=== PATIENT | female | born 1990 | race Caucasian/White ===

== ENCOUNTER 2024-07-08 19:20 | Inpatient (IN) | payer OTHER ==
[2024-07-08 20:29] VITALS: BMI 25.1
[2024-07-08] MEDS ORDERED: guaiFENesin 600 MG TABLET.ER (FP) PO PRN (21:32)
[2024-07-08] MEDS ORDERED: chlordiazePOXIDE HCL 25 MG CAPSULE PO PRN (21:32)
[2024-07-08] MEDS ORDERED: ONDANSETRON *ODT* 4 MG TABLET SL PRN (21:32)
[2024-07-08] MEDS ORDERED: DICYCLOMINE HCL 10 MG CAPSULE PO PRN (21:32)
[2024-07-08] MEDS ORDERED: BISMUTH SUBSALICYLATE 524 MG/30 ML PO PRN (21:32)
[2024-07-08] MEDS ORDERED: LOPERAMIDE HCL 2 MG CAPSULE PO PRN (21:32)
[2024-07-08] MEDS ORDERED: NALOXONE (NARCAN) HCL 4 MG/0.1 ML SPRAY NS PRN (21:32)
[2024-07-08] MEDS ORDERED: NALOXONE HCL 0.4 MG/ML VIAL IM PRN (21:32)
[2024-07-08] MEDS ORDERED: IBUPROFEN 400 MG TABLET (FP) PO PRN (21:32)
[2024-07-08] MEDS ORDERED: IBUPROFEN 600 MG TABLET (FP) PO PRN (21:32)
[2024-07-08] MEDS ORDERED: BENZONATATE 200 MG CAPSULE PO PRN (21:32)
[2024-07-08] MEDS ORDERED: BENZOCAINE/MENTHOL (CHLORASEPTIC ) LOZENGE MM PRN (21:32)
[2024-07-08] MEDS ORDERED: MAG HYDROX/AL HYDROX/SIMETH 30 ML UNIT-DOSE CUP PO PRN (21:32)
[2024-07-08] MEDS ORDERED: POLYETHYLENE GLYCOL (HEALTHYLAX) 3350 17 GM PACKET PO PRN (21:32)
[2024-07-08] MEDS ORDERED: ACETAMINOPHEN 325 MG TABLET (FP) PO PRN (21:32)
[2024-07-08] MEDS ORDERED: TRIMETHOBENZAMIDE HCL 200MG/2ML INJ IM ONE (21:46)
[2024-07-08] MEDS ORDERED: hydrOXYzine PAMOATE 25 MG CAPSULE (FP) PO ONE (21:50)
[2024-07-08] MEDS: TRIMETHOBENZAMIDE HCL 200MG/2ML INJ IM ONE (22:02)
[2024-07-08] MEDS ORDERED: MELATONIN 5 MG TABLETS ONE (23:04)
[2024-07-08] MEDS ORDERED: chlordiazePOXIDE HCL 25 MG CAPSULE ONE (23:04)
[2024-07-08] MEDS: chlordiazePOXIDE HCL 25 MG CAPSULE PO SCH (23:07)
[2024-07-08] MEDS: THIAMINE 100 MG TABLET PO SCH (23:07)
[2024-07-08] MEDS: MELATONIN 5 MG TABLETS PO SCH (23:07)
[2024-07-08] MEDS: METHOCARBAMOL 500 MG TABLET PO PRN (23:44)
[2024-07-09] MEDS: hydrOXYzine PAMOATE 25 MG CAPSULE (FP) PO PRN (01:32)
[2024-07-09] MEDS: PRENATAL VITAMINS W/ FOLIC ACID TABLET (FP) PO SCH (10:02)
[2024-07-09 11:25] LABS: HEMATOCRIT 37.9 % (32.4-45.2); HEMOGLOBIN 12.7 GM/dL (10.7-15.3); MCH 31.1 pg (25.7-33.7); MCHC 33.6 g/dl (32.0-36.0); MEAN CELL VOLUME 92.7 fl (80-96); MEAN PLT VOLUME 8.5 fl (7.5-11.1); PLATELET COUNT 214 10^3/uL (134-434); RBC 4.09 M/mm3 (3.60-5.2); RDW 13.5 % (11.6-15.6); WHITE BLOOD COUNT 8.8 K/mm3 (4.0-10.0)
[2024-07-09 11:40] LABS: CHLORIDE 107 mmol/L (98-107); POTASSIUM 3.8 mmol/L (3.5-5.1); SODIUM 140 mmol/L (136-145)
[2024-07-09 11:43] LABS: ANION GAP 10 mmol/L (4-13); CO2 22 mmol/L (21-32); GLUCOSE,RANDOM 115 mg/dL (74-106)
[2024-07-09 11:44] LABS: ALBUMIN 3.4 g/dl (3.4-5.0); BLOOD UREA NITROGEN 9.8 mg/dL (7-18)
[2024-07-09 11:46] LABS: SGPT/ALT 52 U/L (13-61)
[2024-07-09 11:47] LABS: CREATININE 0.7 mg/dL (0.55-1.3); SGOT/AST 41 U/L (15-37)
[2024-07-09 11:48] LABS: BILIRUBIN,TOTAL 1.1 mg/dL (0.2-1); TOT PROT 6.3 g/dl (6.4-8.2)
[2024-07-09 11:49] LABS: ALK PHOS 63 U/L (45-117)
[2024-07-09] MEDS: carBAMazepine 200 MG TABLET PO SCH (12:03)
[2024-07-09] MEDS: MELATONIN 5 MG TABLETS PO SCH (22:15)
[2024-07-10] MEDS: chlordiazePOXIDE HCL 25 MG CAPSULE PO SCH (06:00)
[2024-07-10] MEDS: SEMAGLUTIDE 14 MG PO SCH (07:55)
[2024-07-11] MEDS: chlordiazePOXIDE HCL 10 MG CAPSULE PO SCH (05:03)
[2024-07-11] MEDS: chlordiazePOXIDE HCL 10 MG CAPSULE PO PRN (21:48)
[2024-07-12] MEDS: chlordiazePOXIDE HCL 10 MG CAPSULE PO SCH (05:59)
[2024-07-12] MEDS: MAGNESIUM HYDROX 2400MG/30ML ORAL SUSPENSION 30 ML CUP PO PRN (11:39)
[2024-07-12] MEDS: NALTREXONE HCL 50 MG TABLET PO SCH (11:56)
[2024-07-13] MEDS: chlordiazePOXIDE HCL 10 MG CAPSULE PO ONE (05:54)
[2024-07-13] MEDS ORDERED: BISACODYL 5 MG TABLET.DR (FP) PO ONE (16:47)
[2024-07-13] MEDS: BISACODYL 5 MG TABLET.DR (FP) PO ONE (19:04)
[2024-07-13] MEDS: DOCUSATE SODIUM 100 MG CAPSULE (FP) PO SCH (22:04)
[2024-07-14 10:53] VITALS: TEMP 97.8
[2024-07-14 13:10] VITALS: BP 130/87; PULSE 79; RESP 16
== END 2024-07-14 13:22 | disposition home or self-care (01) | DRG 775 ==
LOC: YASAS 19:20 → Y6N 22:35
PROVIDERS: ADMIT Allergy & Immunology; ATTEND Surgery
PROC: HZ2ZZZZ Detoxification Services for Substance Abuse Treatment (ICD-10-PCS; principal; 2024-07-08)
DX: F10.230 Alcohol dependence with withdrawal, uncomplicated (principal); F17.210 Nicotine dependence, cigarettes, uncomplicated; F19.24 Other psychoactive substance dependence with psychoactive substance-induced mood disorder; R73.03 Prediabetes; Z86.59 Personal history of other mental and behavioral disorders
CPT/HCPCS: 36415; 80053; 80305; 80307; 81025; 82962; 85027; 86780; 93005; 93010